=== PATIENT | female | born 1995 | race Two or more races ===

== ENCOUNTER 2024-01-05 09:29 | Emergency (ER) | payer MEDICAID, OTHER, SELFPAY ==
--- NOTE | ~2024-01-05 | XR_ITS ---
EXAMINATION: XR CHEST CLINICAL INFORMATION: Cough and shortness of breath. COMPARISON: None available. TECHNIQUE: 2 views of the chest were obtained. FINDINGS: The lungs are adequately expanded. No focal consolidation. No pleural effusions or pneumothorax. The cardiomediastinal silhouette is within normal limits. No acute osseous abnormality. XR/XR chest 2V IMPRESSION: No acute pulmonary disease. Electronically signed by: Rodney Nolan MD 01/05/2024 10:36 AM EDT
[2024-01-05 09:33] VITALS: BP 134/86; PULSE 71; RESP 19; TEMP 37.3; O2SAT 98; BMI 28.3
[2024-01-05 10:40] LABS: Influenza A PCR NEGATIVE (Negative); Influenza B PCR NEGATIVE (Negative); Resp Syncy Virus RNA Qual PCR NEGATIVE (Negative); SARS COV2 PCR INHOUSE NEGATIVE (Negative)
[2024-01-05 12:20] VITALS: BP 109/81; PULSE 64; RESP 18; TEMP 36.6; O2SAT 98
--- NOTE | 2024-01-05 12:20 | ED_ITS ---
HPI - URI/Sore Throat General Chief Complaint: Upper Respiratory Symptoms Stated Complaint: epagn-mi-[id number] throat Time Seen by Provider: 01/05/24 12:26 Source: patient, RN notes reviewed and old records reviewed Mode of arrival: ambulatory History of Present Illness ED Provider: Peg Taveras PA-C HPI Narrative: 28-year-old female with no significant past medical history presenting to the ED complaining dry cough, congestion, SOB, chest discomfort with cough, and post- tussive emesis x 3 days. Denies fever recent travel, sick contacts, pedal edema. Also reports Nexplanon has been in place to LUE x5yrs and wants it removed/is concerned about contraceptive use. Related Data Previous Rx's ?Medication ?Instructions ?Recorded benzonatate 100 mg capsule 100 mg PO TID PRN cough #14 caps 01/05/24 Allergies Allergy/AdvReac Type Severity Reaction Status Date / Time No Known Allergies Allergy Verified 01/05/24 09:35 Review of Systems Review of Systems: Yes all other systems are reviewed and are negative Constitutional: Constitutional: Reports as per [facility] Past Medical History Attestation statement: The following information was validated with the patient. Source: old records reviewed Physical Exam Vital Signs: Vital Signs: Last Vital Signs Temp 98 F 01/05/24 12:20 Pulse 64 01/05/24 12:20 Resp 18 01/05/24 12:20 BP 109/81 01/05/24 12:20 Pulse Ox 98 01/05/24 12:20 O2 Del Method Room Air 01/05/24 09:33 BMI result Body Mass Index 28.3 Const: General: cooperative, healthy appearing and no acute distress Orientation/consciousness: patient oriented x3 Limitations: no limitations HEENT: Head: Yes normal to inspection and Yes atraumatic Ears: hearing grossly normal bilaterally General nose exam: Normal external nose present Face and sinus: Yes normal facial exam Mouth: Normal oral and palatal mucosa present Throat: Yes posterior oropharynx normal, Yes uvula midline, No peritonsillar mass, No uvula laterally displaced and No uvular edema Eyes: General: appearance normal, both eyes and all related structures EOM: EOMs intact bilaterally Neck: Neck: Yes normal visual inspection and Yes no meningeal signs Resp: Effort & Inspection: normal respiratory effort and no respiratory distress Auscultation: clear to auscultation bilaterally, no crackles, no rales, no rhonchi and no wheezes Cardio: Rate: regular rate Heart sounds: S1 normal heart sound present and S2 normal heart sound present GI: Inspection: Yes normal to inspection Palpation (GI): Soft to palpation, nontender, no guarding and not rigid : General: Yes no CVA tenderness Back/Spine/Pelvis: Back: no CVA tenderness Skin: Other: Nexplanon noted to LUE without surrounding erythema, no fluctuance/induration or tenderness Rashes: no rashes Wounds: no wounds Neuro: General: patient oriented x3, tone normal and no meningeal signs Cranial nerves: Yes CN's II-XII intact bilaterally Gait exam (Neuro): Normal gait present Extrem: General: Yes normal to inspection Course Course Course Narrative: XR chest 2V IMPRESSION: No acute pulmonary disease. -COVID/flu/RSV negative > will refer to cashier and waiter/waitress for Nexplanon removal Results discussed with patient including worrisome signs and symptoms and strict return precautions, and when to return to the emergency department. They verbalized understanding and feel safe for discharge at this time. Medical Decision Making Medical Decision Making MDM Narrative: 28-year-old female with no significant past medical history presenting to the ED complaining dry cough, congestion, SOB, chest discomfort with cough, and post- tussive emesis x 3 days. On exam vital signs stable, NAD, nontoxic appearing, talking in complete sentences, lungs CTA. Oropharynx WNL. Nexplanon noted to left upper extremity without surrounding cellulitis/abscess. Concern for viral illness vs pneumonia vs bronchitis. Low suspicion for ACS/PE or CHF Plan: Viral testing, CXR Please refer to course for remaining clinical decision making, interpretation of labs/imaging results, and discussions with consultants and/or family members. Differential Diagnosis Differential Diagnoses: The differential diagnosis associated with the presentation includes As above Admission/Observation Consideration of admission/observation: Escalation of care including admission/observation considered Lab Data [facility] Lab Attestation statement: I reviewed the patient's lab results. Labs: Lab Results 01/05/24 Range/Units 09:46 Influenza Type A (PCR) NEGATIVE (Negative) Influenza Type B (PCR) NEGATIVE (Negative) RSV RNA Qual (PCR) NEGATIVE (Negative) SARS-CoV-2 RNA (RT-PCR) NEGATIVE (Negative) Radiology Impression Discussion of test interpretation with radiology: I have reviewed the radiologist's reading. External Record Review External record reviewed: Inpatient record, Office record, Outpatient record, Prior outpatient labs, Prior outpatient radiology, Primary care record and Outside ED record Tests considered The following testing was considered but not selected: As above Discharge Plan Discharge Clinical Impression: Upper respiratory infection Patient Disposition: Home, Self-Care Instructions: Upper Respiratory Infection (DC) Additional Instructions: You tested negative for COVID, flu, RSV Your x-rays unremarkable Tessalon Perles for cough, take as needed Please follow-up with cashier and waiter/waitress for removal of your implant If symptoms persist or worsen return to the ED Prescriptions: New benzonatate 100 mg capsule 100 mg PO TID PRN (Reason: cough) Qty: 14 0RF Referrals: [facility] [Provider Group] Physician,None [Primary Care Provider] - Print Language: Kenyan
[2024-01-05 12:35] VITALS: BP 109/81; PULSE 64; RESP 18; TEMP 36.6; O2SAT 98
== END 2024-01-05 12:44 | disposition home or self-care (01) ==
LOC: HO.ED 12:36
PROVIDERS: Emergency Provider Student in an Organized Health Care Education/Training Program
DX: J06.9 Acute upper respiratory infection, unspecified (principal); R05.9 Cough, unspecified; Z03.818 Encounter for observation for suspected exposure to other biological agents ruled out
CPT/HCPCS: 0241U; 71046; 99282; 99283